=== PATIENT | male | born 1955 | race African-American/Black ===

== ENCOUNTER 2016-12-06 14:44 | Emergency (ER) | payer MEDICARE, OTHER ==
[~2016-12-06] VITALS: Ht 175.3 cm; Wt 56.7 kg
--- NOTE | ~2016-12-06 | EKG ---
PATIENT: MARYANN BERNAL UNIT #: [id number] Ventricular Rate: 66 BPM Atrial Rate: 66 BPM P-R Interval: 124 ms QRS Duration: 78 ms Q-T Interval: 424 ms QTC Calculation(Bezet): 444 ms P Burgess: 74 degrees Calculated R Burgess: 47 degrees Calculated T Burgess: 67 degrees Diagnosis Line: Normal sinus rhythm Diagnosis Line: Normal ECG Diagnosis Line: No previous ECGs available Diagnosis Line: Confirmed by WILL EDWARDS MD ([id number]) on 12/08/2016 Diagnosis Line: 4:50:43 PM INTERPRETING MD: JERRY BRAUN
[~2016-12-06 14:44] MED LIST: ADVIL200 M3; ANALGESIC; B/P MED; BENAZEPRIL HCL40 MG PO; BP MED; DEPAKOTE; FLEXERIL10 M1 PO; FLEXERIL10 MG PO; HYDRALAZINE HCL50 MG PO; HYDROCODONE-A1 UDTA3 PO; IBUPROFEN800 MG PO; LOSARTAN POTASS25 MG PO; NERVE PILL; TYLENOL #3 PO; ZITHROMAX PO
[2016-12-06] MEDS ORDERED: PATIENT'S PHARMACY (17:36)
[2016-12-06] MEDS ORDERED: LORTAB 7.5-3251 EACH PO (17:37)
[2016-12-06] MEDS ORDERED: FLEXERIL10 MG PO (17:37)
[2016-12-06] MEDS ORDERED: CARVEDILOL25 MG PO (17:37)
[2016-12-06] MEDS ORDERED: GABAPENTIN300 MG PO (17:37)
[2016-12-06] MEDS ORDERED: DIOVAN320 MG PO (17:37)
[2016-12-06 17:55] LABS: URINE SOURCE CLEAN CATCH
[2016-12-06 18:01] LABS: URINE APPEARANCE CLEAR; URINE BILIRUBIN NEG (NEG); URINE BLOOD NEG (NEG); URINE COLOR DK YELLOW; URINE GLUCOSE NEG (NEG); URINE KETONE TRACE (NEG); URINE LEUKOCYTE ESTERASE NEG (NEG); URINE NITRATE NEG (NEG); URINE PH 6.5 (5-8); URINE PROTEIN 1+ (NEG); URINE SPECIFIC GRAVITY 1.018 (1.003-1.035)
[2016-12-06 18:04] LABS: URINE BACTERIA AUWI NEG (NEGATIVE); URINE SQUAMOUS EPITHELIAL CELL NONE SEEN /[HPF]; UWBCS1 AUWI 0-2 (0-5)
[2016-12-06 18:09] LABS: CULTURE INDICATED? NO
[2016-12-06 18:38] LABS: BASOPHIL# 0.1 X10e3 (0-0.3); BASOPHIL% 1.2 % (0-2.5); EOSINOPHIL# 0.3 X10e3 (0-0.7); EOSINOPHIL% 5.7 % (0.0-7.0); HEMATOCRIT 42.4 % (38.0-50.0); HEMOGLOBIN 13.7 gm/dL (13.0-16.0); LYMPHOCYTE# 2.4 X10e3 (1.0-3.5); LYMPHOCYTE% 52.3 % (17.0-45.0); MEAN CELL VOLUME 78.2 FL (83-96); MEAN CORPUSCULAR HEMOGLOBIN 25.2 PG (28-34); MEAN CORPUSCULAR HGB CONC 32.3 g/dL (30-36); MEAN PLATELET VOLUME 7.9 FL (6.5-11.5); MONOCYTE# 0.3 X10e3 (0-1.0); MONOCYTE% 7.4 % (3.0-12.0); NEUTROPHIL# 1.6 X10e3 (1.5-7.1); NEUTROPHIL% 33.4 % (40-75); PLATELET COUNT 167 X10e3 (140-420); RED BLOOD COUNT 5.42 X10e (3.90-5.60); RED CELL DISTRIBUTION WIDTH 14.5 % (11.0-15.5); WHITE BLOOD COUNT 4.7 X10e3 (4.0-10.5)
[2016-12-06 18:40] LABS: DIFF IND YES
[2016-12-06 18:51] LABS: ALBUMIN SERUM 4.6 g/dL (3.5-5.0); BILIRUBIN, DIRECT 0.1 mg/dL (0.0-0.2); BILIRUBIN,INDIRECT 0.8 mg/dL (0.0-0.9); BILIRUBIN,TOTAL 0.9 mg/dL (0.2-2.0); BUN/CREATININE RATIO 11.25; CALCIUM SERUM 9.9 mg/dL (8.4-10.2); CREATININE SERUM 0.8 mg/dL (0.6-1.4); POTASSIUM 3.4 mmol/L (3.5-5.1); PROTEIN TOTAL SERUM 8.2 g/dL (6.0-8.3)
[2016-12-06 19:02] LABS: PLATELET ESTIMATE NORMAL (NORMAL)
[2016-12-06 19:03] LABS: MICROCYTOSIS SL
[2016-12-06 19:04] LABS: HYPOCHROMIA SL
== END 2016-12-06 20:45 | disposition home or self-care (01) ==
LOC: CED 14:44
DX: I10 Essential (primary) hypertension (principal); F17.210 Nicotine dependence, cigarettes, uncomplicated; Z79.899 Other long term (current) drug therapy; Z88.0 Allergy status to penicillin
CPT/HCPCS: 36415; 80048; 80076; 81003; 85025; 93005; 99284

== ENCOUNTER → 2016-12-19 | Outpatient (CLI) | payer MEDICARE, OTHER ==
[~2016-12-19] MED LIST changes: +CARVEDILOL25 MG PO; +DIOVAN320 MG PO; +GABAPENTIN300 MG PO; +LORTAB 7.5-3251 EACH PO; +PATIENT'S PHARMACY
--- NOTE | ~2016-12-19 | CT57 ---
[facility] A Service of [facility] & [facility] RADIOLOGY TEXT RESULTS PATIENT: MARYANN BERNAL LOCATION: CCAT : 53 UNIT #: [id number] AGE: [address]: Florian Rivers SEX: M ORDER DR: [id number] [facility] [address] [place], [place] [address] [id number] O MR#: [id number] Acc #: [id number] NAME: MARYANN BERNAL : 1955 SEX: M STUDY DATE/TIME: 12/19/2016 11:43 UNIT: CCAT ROOM: STUDY DESCRIPTION: CT Chest Wo Cont Attending Physician: Florian Rivers A.P.R.N. Referring Physician: Florian Rivers A.P.R.N. Ordering Physician: Florian Rivers A.P.R.N. Primary Care Physician: Florian Rivers A.P.R.N. MEDICAL IMAGING REPORT This report is preliminary unless electronic signature is present EXAM CT chest without contrast 12/19/2016 1143 hours HISTORY Chest pain with uncontrolled hypertension. Patient describes mid chest pain for 2 years. COMPARISON Chest x-ray 01/02/2010. No prior chest CT for comparison. TECHNIQUE Helical noncontrasted images were obtained from the lung apices through the adrenal glands. Sagittal and coronal reconstructions were performed. Total exam DLP 428 mGy-cm. This CT exam was performed with one or more of the following radiation dose reduction techniques: Automatic exposure control, adjustment of mA and/or kV according to patient size, and iterative reconstruction. FINDINGS Images through the thoracic inlet demonstrate no definite thyroid lesion or supraclavicular adenopathy. Images through the chest demonstrate overall normal cardiac size, with no pericardial fluid. The ascending aorta is normal, measuring up to 3.4 cm. There is some ectasia of the descending thoracic aorta measuring up to 3.2 cm, consistent with a mild descending thoracic aortic aneurysm. No definite coronary calcifications are seen. The esophagus is normal. There are benign calcified AP window and subcarinal and right infrahilar lymph nodes, consistent with old granulomatous change. The lung window images demonstrate underlying centrilobular emphysema, with a few blebs at the apices, and biapical pleural and parenchymal thickening and scarring. [facility]. [facility] A Service of [facility] & [facility] RADIOLOGY TEXT RESULTS PATIENT: MARYANN BERNAL [facility] UN[facility] #: [id number] AGE: [address]: Florian Rivers SEX: M ORDER DR: Calcified nodules are present in both lower lobes. No noncalcified nodules are seen. Limited views through the upper abdomen demonstrate no definite liver or adrenal lesion. The spleen is normal in size. There are atherosclerotic calcifications of the abdominal aorta. IMPRESSION 1. Overall normal heart size with no coronary calcifications seen. Exclusion of blocked vessels, as requested on the order form, cannot be performed on this exam. 2. There is diffuse ectasia of the aorta measuring 3.4 cm in the ascending aorta, and mildly aneurysmal in the descending thoracic aorta measuring 3.2 cm. 3. There is underlying emphysematous change and benign calcified granulomatous changes. No acute pulmonary or pleural findings. 4. Atherosclerotic calcifications of the abdominal aorta. No adrenal lesions seen. Dictated by... Elin Acevedo M.D. THIS IS AN ELECTRONICALLY VERIFIED REPORT Elin Acevedo M.D. at 12/21/2016 9:25 AM ISMA/lucie TD: 12/20/2016 16:59 JOB #: [id number] MEDICAL IMAGING REPORT Page 1 of 1 COPY
--- NOTE | ~2016-12-19 | US37 ---
[facility] A Service of [facility] & [facility] RADIOLOGY TEXT RESULTS PATIENT: MARYANN BERNAL LOCATION: CCAT : 53 UNIT #: [id number] AGE: [address]: Florian Rivers SEX: M ORDER DR: [id number] [facility] [address] [place], [place] [address] [id number] O MR#: [id number] Acc #: [id number] NAME: MARYANN BERNAL. : 1955 SEX: M STUDY DATE/TIME: 12/19/2016 10:59 UNIT: CCAT ROOM: STUDY DESCRIPTION: Carotid W/Doppler Bilateral Attending Physician: Florian Rivers A.P.R.N. Referring Physician: Florian Rivers A.P.R.N. Ordering Physician: Florian Rivers A.P.R.N. Primary Care Physician: Florian Rivers A.P.R.N. MEDICAL IMAGING REPORT This report is preliminary unless electronic signature is present EXAM Carotid Doppler bilateral, 12/19/2016 HISTORY Loss of balance, coordination for 2 years with frequent headaches. Benign essential hypertension. Evaluate for carotid stenosis. FINDINGS Isaacs-scale carotid artery images were obtained as well as Doppler waveform, spectral analysis and color flow Doppler imaging. The examination was interpreted according to NASCET criteria. There is no hemodynamically significant stenosis in either carotid artery. Peak systolic velocity in the right and left internal carotid arteries is 78 cm/sec and 118 cm/sec respectively. Antegrade blood flow is seen in both vertebral arteries. Mild plaque was seen bilaterally. IMPRESSION No hemodynamically significant stenosis in either carotid artery. Dictated by... Mitch Travis M.D. THIS IS AN ELECTRONICALLY VERIFIED REPORT Mitch Travis M.D. at 12/20/2016 7:25 AM KIRA/ria TD: 12/20/2016 03:34 JOB #: [id number] MEDICAL IMAGING REPORT Page 1 of 1 COPY
== END | disposition home or self-care (01) ==
LOC: CCAT 09:20
DX: R09.89 Other specified symptoms and signs involving the circulatory and respiratory systems (principal); I10 Essential (primary) hypertension; R07.9 Chest pain, unspecified; I77.810 Thoracic aortic ectasia; I70.0 Atherosclerosis of aorta
CPT/HCPCS: 71250; 93880

== ENCOUNTER 2017-01-03 11:47 | Emergency (ER) | payer MEDICARE, OTHER ==
[~2017-01-03] VITALS: Ht 175.3 cm; Wt 56.7 kg
== END 2017-01-03 13:50 | disposition left against medical advice (07) ==
LOC: CED 11:47
DX: Z53.21 Procedure and treatment not carried out due to patient leaving prior to being seen by health care provider (principal)

== ENCOUNTER 2017-01-03 20:27 | Emergency (ER) | payer MEDICARE, OTHER ==
[~2017-01-03] VITALS: Ht 175.3 cm; Wt 56.7 kg
--- NOTE | ~2017-01-03 | CR72 ---
[facility] A Service of [facility] & [facility] RADIOLOGY TEXT RESULTS PATIENT: MARYANN BERNAL LOCATION: SED : 53 UNIT #: [id number] AGE: [address]: Danyel Seymour MD SEX: M ORDER DR: [id number] [place] [id number] E MR#: [id number] Acc #: [id number] NAME: MARYANN BERNAL. : 1955 SEX: M STUDY DATE/TIME: 01/03/2017 21:02 UNIT: SED ROOM: STUDY DESCRIPTION: CR Chest Single View Portable Attending Physician: Danyel Seymour M.D. Ordering Physician: Rohit Seymour M.D. Primary Care Physician: Florian Rivers A.P.R.N. MEDICAL IMAGING REPORT This report is preliminary unless electronic signature is present. EXAM Portable chest, 01/03/2017. INDICATIONS Chest pain radiating to the left shoulder for 4 days. FINDINGS AP portable chest compared with 01/02/2010. Cardiac and mediastinal contours are normal. The lungs are clear. Scattered granulomatous calcifications are incidentally noted. There was emphysema. IMPRESSION Emphysema. No active disease. Dictated by... Luiz Trevino Jr., M.D. THIS IS AN ELECTRONICALLY VERIFIED REPORT Luiz Trevino Jr., M.D. at 01/04/2017 10:02 AM Nas TD: 01/03/2017 23:09 JOB #: [id number] MEDICAL IMAGING REPORT Page 1 of 1
--- NOTE | ~2017-01-03 | EKG ---
PATIENT: MARYANN BERNAL UNIT #: [id number] Ventricular Rate: 71 BPM Atrial Rate: 71 BPM P-R Interval: 142 ms QRS Duration: 94 ms Q-T Interval: 400 ms QTC Calculation(Bezet): 434 ms P [place]: 69 degrees Calculated R [place]: 38 degrees Calculated T [place]: 62 degrees Diagnosis Line: Normal sinus rhythm with sinus arrhythmia Diagnosis Line: Normal ECG Diagnosis Line: When compared with ECG of 06-DEC-2016 18:28, Diagnosis Line: No significant change was found Diagnosis Line: Confirmed by DELMA ENRIQUE MD ([id number]) on Diagnosis Line: 01/05/2017 9:10:44 AM INTERPRETING MD: KLAUS BRAUN
[2017-01-03 21:02] LABS: BASOPHIL# 0.1 X10e3 (0-0.3); BASOPHIL% 2.6 % (0-2.5); EOSINOPHIL# 0.4 X10e3 (0-0.7); EOSINOPHIL% 8.8 % (0.0-7.0); HEMATOCRIT 41.1 % (38.0-50.0); HEMOGLOBIN 12.9 gm/dL (13.0-16.0); LYMPHOCYTE% 64.5 % (17.0-45.0); MEAN CELL VOLUME 78.2 FL (83-96); MEAN CORPUSCULAR HEMOGLOBIN 24.5 PG (28-34); MEAN CORPUSCULAR HGB CONC 31.3 g/dL (30-36); MEAN PLATELET VOLUME 8.1 FL (6.5-11.5); MONOCYTE# 0.3 X10e3 (0-1.0); MONOCYTE% 5.8 % (3.0-12.0); NEUTROPHIL# 0.9 X10e3 (1.5-7.1); NEUTROPHIL% 18.3 % (40-75); PLATELET COUNT 162 X10e3 (140-420); RED BLOOD COUNT 5.26 X10e (3.90-5.60); RED CELL DISTRIBUTION WIDTH 14.4 % (11.0-15.5); WHITE BLOOD COUNT 4.7 X10e3 (4.0-10.5)
[2017-01-03 21:10] LABS: DIFF IND YES
[2017-01-03 21:11] LABS: POC - CKMB 2.2 ng/mL (0.0-7.9); POC - MYOGLOBIN 48.1 ng/mL (0.0-169.0); POC - TROPONIN <0.05 ng/mL (<=0.05)
[2017-01-03 21:19] LABS: BUN/CREATININE RATIO 11.42; CALCIUM SERUM 9.6 mg/dL (8.4-10.2); CREATININE SERUM 0.7 mg/dL (0.6-1.4); GLOM FILT RATE Estimated 117.3 mL/min (>60)
[2017-01-03 21:31] LABS: PLATELET ESTIMATE NORMAL (NORMAL)
[2017-01-03 21:32] LABS: ANISOCYTOSIS SL; MICROCYTOSIS SL; POIKILOCYTOSIS SL; REACTIVE LYMPHS PRESENT
[2017-01-03 23:17] LABS: POC - CKMB 1.7 ng/mL (0.0-7.9); POC - MYOGLOBIN 40.3 ng/mL (0.0-169.0); POC - TROPONIN <0.05 ng/mL (<=0.05)
== END 2017-01-04 00:24 | disposition short-term general hospital (02) ==
LOC: SED 20:27
PROVIDERS: Emergency Medicine
DX: R07.89 Other chest pain (principal); E87.6 Hypokalemia; I10 Essential (primary) hypertension; F17.210 Nicotine dependence, cigarettes, uncomplicated; Z79.899 Other long term (current) drug therapy; Z88.0 Allergy status to penicillin
CPT/HCPCS: 36415; 71010; 80048; 82553; 83874; 84484; 85025; 85379; 93005; 96374; 99285; J1885